=== PATIENT | female | born 1955 ===

== ENCOUNTER 2025-01-04 10:15 | Outpatient (REF) | payer OTHER, SELFPAY ==
--- NOTE | ~2025-01-04 | XR_ITS ---
CLINICAL HISTORY: M25.561 - Pain in right knee AP standing view of bilateral knees, two views of right knee and two views of the left knee Comparison: None Findings: No fractures or dislocations. No significant arthritic change or erosions. No joint effusion. No radiopaque foreign body. IMPRESSION: 1. No acute findings. This document has been electronically signed by: Felipe Warren MD on 01/04/2025 15:56:00
--- NOTE | ~2025-01-04 | XR_ITS ---
CLINICAL HISTORY: M51.369 - Other intervertebral disc degeneration, lumbar region without ... 5 views lumbar spine Comparison: None Findings: Normal vertebral body alignment. No acute fractures or dislocation. Multilevel disc space narrowing and endplate osteophyte formation, as well as facet hypertrophy. IMPRESSION: No acute findings. This document has been electronically signed by: Felipe Warren MD on 01/04/2025 15:45:13
--- OUTSIDE RECORDS SUMMARY | 2025-01-04 12:47 | XMS_ITS | Clinical Summary ---
Author Organization [facility] Address [address] [place] [address] Care Team Providers Care [employer]al [employer] Supervisor Name Role Phone Minerva Omalley PA-C Primary [...] care facility [facility] 90 Tablet 6 04/10/20 24 Active albuterol [...] September 20, 2017 15:40 EST Encounter info: [id number], BAKARI, OutPatient One Time, 09/20/2017 - * [...] There is no acute osseous abnormality. WSN: [id number] Signature Line Dictated By: Marcy Stokes MD [...] Description 12/16/2024 7:40 AM EDT Telemedicine Visit [address] [address] Minerva Omalley PA-C Lumbar disc disease, x-ray 09/20/2017 (Primary Dx); Primary osteoarthritis involving multiple joints; Fibromyalgia 10/27/2024 1:00 PM EST Office Visit [address] [place] [address] Minerva Omalley PA-C Routine general medical examination [...] Screening 12/03/2032 Hepatitis C Screening Completed 12/04/2018 [id number] Discontinued 05/23/2022, 12/0 03/2021, 12/31/2020, Additional history [...] TO FT4 0.64 0.40 - 4.50 mIU/L [facility] Blood Blood / Unknown 10/27/2024 1 :18 PM EST 10/27/2024 1:19 PM EST Minerva Omalley PA-C LAB - BLOOD DRAW Edited Resu lt - Final [facility] [address] [address], [facility] [address] [address] * (ABNORMAL) LYME DISEASE, IGG/IGM AB, WESTERN BLOT (10/27/2024 1:18 PM EST) LYME DISEASE AB (IGG) WB NEGATIVE NEGATIVE [facility] 18 KD (IGG) BAND REACTIVE(A) [facility] 23 KD (IGG) BAND NON-REACTIVE [facility] 28 KD (IGG) BAND NON-REACTIVE [facility] 30 KD (IGG) BAND NON-REACTIVE [facility] 39 KD (IGG) BAND NON-REACTIVE [facility] 41 KD (IGG) BAND NON-REACTIVE [facility] 45 KD (IGG) BAND NON-REACTIVE [facility] 58 KD (IGG) BAND NON-REACTIVE [facility] 66 KD (IGG) BAND REACTIVE(A) [facility] 93 KD (IGG) BAND NON-REACTIVE [facility] LYME DISEASE AB (IGM) WB NEGATIVE NEGATIVE [facility] 23 KD (IGM) BAND REACTIVE(A) [facility] 39 KD (IGM) BAND NON-REACTIVE [facility] 41 KD (IGM) BAND NON-REACTIVE [facility] COMMENT [facility] Blood Blood / Unknown 10/27/2024 1 :18 PM EST 10/27/2024 1:19 PM EST Narrative [facility] - 10/28/2024 9:30 PM EST Lyme immunoblot [...] LAB - BLOOD DRAW Final Resul t [facility] [address] [address], [facility] [address] [address] * (ABNORMAL) BLOOD COUNT COMPLETE AUTO&AUTO DIFRNTL WBC (10/27/2024 1:18 PM EST) WHITE BLOOD CELL COUNT 5.0 3.8 - 10.8 Thousand/ uL [facility] RED BLOOD CELL COUNT 4.21 3.80 - 5.10 Million/u L [facility] HEMOGLOBIN 12.5 11.7 - 15.5 g/dL [facility] HEMATOCRIT 38.9 35.0 - 45.0 % [facility] MCV 92.4 80.0 - 100.0 fL [facility] MCH 29.7 27.0 - 33.0 pg [facility] MCHC 32.1 32.0 - 36.0 g/dL [facility] Comment: For adults, a slight decrease in the calculated MCHC value (in the range of 30 to 32 g/dL) is most likely not clinically significant; however, it should be interpreted with caution in correlation with other red cell parameters and the patient's clinical condition. RDW 13.0 11.0 - 15.0 % [facility] PLATELET COUNT 164 140 - 400 Thousand/ uL [facility] MPV 12.8(H) 7.5 - 12.5 fL [facility] ABSOLUTE NEUTROPHILS 2,795 1,500 - 7,800 cells/uL [facility] ABSOLUTE LYMPHOCYTES 1,765 850 - 3,900 cells/uL [facility] ABSOLUTE MONOCYTES 310 200 - 950 cells/uL [facility] ABSOLUTE EOSINOPHILS 120 15 - 500 cells/uL [facility] ABSOLUTE BASOPHILS 10 0 - 200 cells/uL [facility] NEUTROPHILS PCT 55.9 % QUES T [employer] [facility] LYMPHOCYTES 35.3 % [facility] [employer] [facility] MONOCYTES 6.2 % [facility] [employer] [facility] EOSINOPHILS 2.4 % [facility] [employer] BASOPHILS 0.2 % [employer] DIAG [employer] [facility] Blood Blood / Unknown 10/27/2024 1 :18 PM EST 10/27/2024 1:19 PM EST us Minerva Omalley PA-C LAB - BLOOD DRAW Edited Resu lt - Final [employer] [facility] [address] [address], [employer] [address] [address] * (ABNORMAL) LIPID PANEL (10/27/2024 1:18 PM EST) CHOLESTEROL, TOTAL 243(H) <200 mg/dL [employer] [facility] HDL CHOLESTEROL 74 > OR = 50 mg/dL [facility] TRIGLYCERIDES 103 <150 mg/dL [facility] LDL-CHOLESTEROL 147(H) 99 mg/dL (calc) [facility] Comment: Reference range: <100 Desirable range <100 mg/dL for primary prevention; ?? <70 mg/dL for patients with CHD or diabetic patients with > or = 2 CHD risk factors. LDL-C is now calculated using the Noreen calculation, which is a validated novel method providing better accuracy than the Friedewald equation in the estimation of LDL-C. Gelacio RAYA et al. ASHWIN. 2013;310(19): 7574-2861 (http://education.Pretty P[employer] Room/faq/MWL701) CHOL/HDLC RATIO 3.3 <5.0 (calc) [facility] NON-HDL CHOLESTEROL 169(H) <130 mg/dL (calc) [facility] Comment: For patients with diabetes plus 1 major ASCVD risk factor, treating to a non-HDL-C goal of <100 mg/dL (LDL-C of <70 mg/dL) is considered a therapeutic option. Blood Blood / Unknown 10/27/2024 1 :18 PM EST 10/27/2024 1:19 PM EST us Minerva Omalley PA-C LAB - BLOOD DRAW Final Resul t [facility] [address] [place] [address], [facility] [address] [place] [phone] * COMPREHENSIVE METABOLIC PANEL (10/27/2024 1:18 PM EST) GLUCOSE 85 65 - 99 mg/dL [facility] Comment: ?Fasting reference interval UREA NITROGEN (BUN) 17 7 - 25 mg/dL [facility] CREATININE (blood) 0.71 0.60 - 1.00 mg/dL [facility] EGFR 91 > OR = 60 mL/min/1. 73m2 [facility] BUN/CREATININE RATIO SEE NOTE: [facility] Comment: ?? Not Reported: BUN and Creatinine are within ?? reference range. ? SODIUM 143 135 - 146 mmol/L [facility] POTASSIUM 3.9 3.5 - 5.3 mmol/L [facility] CHLORIDE 105 98 - 110 mmol/L [facility] CARBON DIOXIDE 31 20 - 32 mmol/L [facility] CALCIUM 9.0 8.6 - 10.4 mg/dL [facility] PROTEIN, TOTAL 6.7 6.1 - 8.1 g/dL [facility] ALBUMIN 4.2 3.6 - 5.1 g/dL [facility] GLOBULIN 2.5 1.9 - 3.7 g/dL (calc) [facility] ALBUMIN/GLOBULI N RATIO 1.7 1.0 - 2.5 (calc) [facility] BILIRUBIN, TOTAL 0.3 0.2 - 1.2 mg/dL [facility] ALKALINE PHOSPHATASE 86 37 - 153 U/L [facility] AST 24 10 - 35 U/L [facility] ALT 20 6 - 29 U/L [facility] Blood Blood / Unknown 10/27/2024 1 :18 PM EST 10/27/2024 1:19 PM EST Minerva Omalley PA-C LAB - BLOOD DRAW Edited Resu lt - Final Performing Organization Address City[facility]/ZIP Co de Phone Number [facility] [address] [address], [facility] [address] [address] * MAMMO DIGITAL SCREEN [place] W CAD 3D (03/12/2024 3:00 AM EDT) 03/12/2024 3:00 AM EDT Minerva Omalley PA-C IMG MAMMO Edited Resul t - Final Performing Organization Address City/[facility]/ZIP Co de Phone Number [facility] Corporate Office [address], [address] [place] [address], [place] [phone] * HISTORIC COLONOSCOPY (12/03/2022 3:00 AM EST) 12/03/2022 3:00 AM EST Minerva Lukin PA-C PROCEDURES Final Result * HEPATITIS C ANTIBODY (12/04/2018 3:35 PM EST) HEPATITIS C VIRUS SCREEN NEGATIVE NEGATIVE [facility] Blood specimen (specimen) Blood / Unknown 12/04/2018 3:35 PM EST 12/04/2018 3:42 PM EST Narrative [facility] - 12/04/2018 7:56 PM EST [employer], a member of [address] [address] [employer] - Priya Kilpatrick MD PT ID [id number] ORD# [id number] us Minerva Omalley PA-C LAB - BLOOD DRAW Final Resul t [address] [address], from Last 3 Months or Most Recently Relevant to Health Maintenance Insurance [facility] Member Subscriber Plan / Payer (Ef fective 2018-Present) Name:Jay Viktoriya Relation to Subscriber:Self Name:Viktoriya Thompson Payer ID:[id number] Group ID:Not on file Type:Indemnity Address: [place] [address] [address] [address] Care Teams 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
== END 2025-01-04 10:16 | disposition home or self-care (01) ==
LOC: HO.XRAY 10:15
PROVIDERS: PCP Physician Assistant; Referring Provider Physician Assistant; Visit Provider Nurse Practitioner Family
DX: M51.369 Other intervertebral disc degeneration, lumbar region without mention of lumbar back pain or lower extremity pain (principal); M54.50 Low back pain, unspecified; G89.29 Other chronic pain; M25.561 Pain in right knee; M25.562 Pain in left knee; M79.7 Fibromyalgia; M15.0 Primary generalized (osteo)arthritis
CPT/HCPCS: 72110; 73562; 99202

== ENCOUNTER 2025-01-04 10:15 | Outpatient (AMB) | payer OTHER, SELFPAY ==
--- NOTE | 2025-01-04 10:18 | A.OFFVIS_ITS ---
Vital Signs 01/04/25 10:26 Height 4 ft 10 in Weight 130 lb BMI 27.2 BP 158/76 H Blood Pressure Location Lt brachial Position Sitting Pulse 74 Pulse Source Pulse Oximeter Pulse Oximetry (%) 99 Oxygen Delivery Method Room Air Intake Visit Reasons: Lumbar disc diease Intake Note: Pain today 05/16 Community Service Coordinator Required: Yes Community Service Coordinator Language: Court Crier Services: Community Service Coordinator Offered & Declined Community Service Coordinator Name: Son Jesus Muhammad Accompanied by: Son Allergies No Known Allergies Allergy (Verified 01/04/25 10:24) HPI HPI Lumbar disc diease: Details: The patient is a 69-year-old Khmer speaking female presenting with back and bilateral knee pain. She reports experiencing long-standing back and knee pain that significantly impairs her mobility, ability to perform daily activities, and sleep quality. The pain has been a consistent problem for an extended period and is described as severe enough to disrupt nightly rest. Additionally, the patient has a documented diagnosis of fibromyalgia causing widespread pain and arthritis affecting multiple joints. Previously prescribed pain medications have been discontinued by her primary care provider and rheumatology per patient, with Gabapentin at nighttime remaining as part of her pain management regimen. The patient also manages osteoporotic and hypertensive conditions, necessitating a cautious approach to treatment plans, particularly concerning potential steroid use. Physical therapy or other non-pharmacological interventions have yet to be attempted. - Onset: Long-standing - Quality: Burning, tiring, tight, heavy, aching, sore, dull, exhausting, sharp - Location: Primarily the back, with knees, shoulders and neck complaints also mentioned - Radiation: No clear indications of systemic radiation, localized specific joint and fibromyalgia points - Exacerbating factors: Physical activity, walking, daily tasks, sleep, changing positions, cold weather - Relieving factors: Not explicitly discussed, partial relief with previous intake of Celebrex and lidocaine patches, heat - Functional impact: Impairs walking, sleeping, and daily activities; requires use of a cane for ambulation - Affect: The patient's mood and psychological well-being may be compromised due to the chronic pain affecting her daily living and sleep. - Analgesia: Current pain medications include Gabapentin taken at night. Lidocaine patches and Celebrex were previously partially effective. Awaiting complete PMH/PSH from PCP office for consideration of non-opioid medications. - Adverse Effects: None reported in connection with current pain medications. - Activities of Daily Living: Pain impedes walking, completing household tasks, and interrupts sleep. - Aberrant Drug Related Behaviors: None reported or observed during this visit. Oswestry Low Back Pain Disability Score=34 [facility] Medical History (Updated 01/04/25 @ 11:05 by MARIANA Em) Dizziness Chronic fatigue Chronic low back pain HTN (hypertension) Osteoporosis Fibromyalgia Primary osteoarthritis involving multiple joints Lumbar degenerative disc disease Social History Alcohol intake: never Patient Tobacco Use Status: Never used Tobacco Review of Systems Const Details: - Musculoskeletal: Reports back pain, knee pain, shoulder and neck discomfort - Neurological: Reports nocturnal awakenings due to pain All systems reviewed & are unremarkable except as noted in HPI and below Physical Exam General: Appears afebrile. Mild discomfort due to pain. Alert and oriented. Mood and affect appropriate. Follows and participates in conversation appropriately. Respiratory effort is unlabored. No cough. No nasal discharge. Able to transition from sit to stand unassisted. Ambulates with bilaterally normal heel strike and toe off. General: Yes no CVA tenderness Back/Spine/Pelvis Other: Lumbar extension reproduces moderate-severe pain. Flexion is intact but limited and reproduces mild pain. Positivie facet loading bilaterally. Multiple widespread TTPs 16/16 bilaterally, including upper and lower extremities. Back: no CVA tenderness Cervical Spine: cervical ROM normal, cervical muscular tenderness, pain with cervical ROM, No Cervical spine scars present and No Cervical spine tenderness Thoracic/Lumbar Spine: thoracic and lumbar spine normal to inspection, No Thoracic/lumbar spine scar(s), Lasegue's sign negative, straight leg raise negative bilaterally, pain with thoraco-lumbar ROM, paraspinal muscle tenderness, thoraco-lumbar ROM limited, No thoracic spinal tenderness and lumbar spinal tenderness (L3-S1) Pelvis: no buttock tenderness Sacroiliac joints: bilaterally tender to palpation Extrem General: Yes capillary refill normal, Yes no clubbing, cyanosis or edema and Yes no calf tenderness Right lower extremity: knee (limited ROM due to pain) Details: normal to inspection, tenderness Location: of the medial joint line and of the lateral joint line and crepitus; no swelling, no ecchymosis and no unusual warmth Left lower extremity: knee (limited ROM due to pain) Details: normal to inspection, tenderness Location: of the medial joint line and of the lateral joint line and crepitus; no swelling, no ecchymosis and no unusual warmth Results Reviewed Results Reviewed: No imaging or labs reports are available for review during visit; planned for back and knee x-rays Assessment & Plan Assessment & Plan (1) Lumbar degenerative disc disease: Code(s): M51.369 - Other intervertebral disc degeneration, lumbar region without mention of lumbar back pain or lower extremity pain Category: Medical (2) Primary osteoarthritis involving multiple joints: Code(s): M15.0 - Primary generalized (osteo)arthritis Category: Medical (3) Fibromyalgia: Code(s): M79.7 - Fibromyalgia Category: Medical (4) Bilateral knee pain: Code(s): M25.561 - Pain in right knee; M25.562 - Pain in left knee Category: Medical (5) Chronic low back pain: Code(s): M54.50 - Low back pain, unspecified; G89.29 - Other chronic pain Category: Medical Plan We will pursue imaging of the patient's back and knees to assess for degree of degenerative changes, any subluxation, listhesis, compression fractures or pars defects. Diagnostic nerve blocks were discussed zoraida confirm the source of her pain, leading to potential radiofrequency ablation or neuromodulation with Sprint PNS trial for prolonged relief. Massage therapy is recommended to address fibromyalgia and arthritic pain. A cautious approach, avoiding steroids, is advised due to osteoporosis. Comprehensive medical records from PCP will help finalize her pain management plan. All questions and concerns have been answered and patient agreed with the plan. Follow up for xray/records review and sooner as needed. Patient was informed and verbally consented to the use of an ambient scribe for clinic note documentation during this visit. Orders: Orders XR knee RT 3V Today M25.561 - Pain in right knee, M25.562 - Pain in left knee XR lumbar spine 4V min Today G89.29 - Other chronic pain, M51.369 - Other intervertebral disc degeneration, lumbar region without mention of lumbar back pain or lower extremity pain, M54.50 - Low back pain, unspecified Referrals Massage Therapy Referral G89.29 - Other chronic pain, M25.561 - Pain in right knee, M25.562 - Pain in left knee, M51.369 - Other intervertebral disc degeneration, lumbar region without mention of lumbar back pain or lower extremity pain, M54.50 - Low back pain, unspecified, M79.7 - Fibromyalgia Medications: New lidocaine 5% Apply to affected areas up to 12 hours per day 2 patches topical DAILY 30 days 60 ea 3RF pain G89.29 - Other chronic pain, M25.561 - Pain in right knee, M25.562 - Pain in left knee, M54.50 - Low back pain, unspecified Patient Instructions: During the visit, we discussed the probable presence of axial back and knee pain exacerbated by arthritis and widespread pain associated with fibromyalgia. Diagnostic imaging and follow-up tests are essential next steps to guide treatment. We explored radiofrequency ablation and Sprint PNS trial benefits, which provide up to a year of pain relief after successful diagnostic nerve blocks. Risks and considerations, including steroid avoidance due to osteoporosis, were reviewed. Consent discussions enveloped receiving massage therapy for fibromyalgia, with referrals to [place] provided. I advised obtaining complete medication and past medical/surgical history for optimal pharmacotherapy and interventional treatment decisions, and forewarned about pre-procedure guidelines for diagnostic interventions, including the need for the cessation of aspirin if nerve blocks are pursued. - Schedule and complete x-rays for your back and knees as discussed. - Attend massage therapy sessions in [place] as referred to help alleviate fibromyalgia and arthritic pain. - Expect a follow-up call regarding the results and next steps. - Stop aspirin seven days before any potential injection procedures, will obtain permission from prescribing physician. - Ensure that your complete medical, surgical and medication history is sent to our office for review. - Return for follow-up after xrays are complete and PCP records received to discuss treatment options. Coding Level of Care Code New Pt Level 4 (86280) Diagnoses Lumbar degenerative disc disease M51.369 Primary osteoarthritis involving multiple joints M15.0 Fibromyalgia M79.7 Bilateral knee pain M25.561; M25.562 Chronic low back pain M54.50; G89.29
[2025-01-04 10:26] VITALS: BP 158/76; PULSE 74; O2SAT 99; BMI 27.2
--- OUTSIDE RECORDS SUMMARY | 2025-01-04 11:25 | XMS_ITS | Clinical Summary ---
Author Organization [facility] Address [address] [place] [address] Care Team Providers Care Loin Puller Name Role Phone Minerva Omalley PA-C Primary Care Provider Source Comments PLEASE NOTE, if this patient is a minor, it may be UNLAWFUL to discuss sensitive information that is contained in these records (such as FAMILY PLANNING, MENTAL HEALTH or SUBSTANCE ABUSE) with the minor patient's parent or other person without the patient's specific authorization.[facility] Allergies No known active allergies Medications acetaminophen (TYLENOL 8 HOUR) 650 mg CR tabletIndications :Tendinitis of shoulder, unspecified laterality,Thorac ic arthritis Take 1 Tablet by mouth 2 (two) times daily 180 Tablet 1 01/16/20 22 Active alendronate (FOSAMAX) 70 mg tabletIndications :Osteoarthritis, unspecified osteoarthritis type, unspecified site TAKE 1 TABLET 1 TIME A WEEK ON EMPTY STOMACH IN THE MORNING WITH WATER SIT UPRIGHT FOR 30 MIN 01/23/20 22 Active latanoprost (XALATAN) 0.005 % ophthalmic solutionIndicatio ns:Osteoarthritis , unspecified osteoarthritis type, unspecified site INSTILL 1 DROP EN LOS DOS OJOS AL ACOSTARSE 01/08/20 22 Active diclofenac epolamine (FLECTOR) 1.3 % patchIndications: Myalgia Place 1 Patch onto the skin 2 (two) times daily 60 Patch 1 02/17/20 22 Active cyclobenzaprine (FLEXERIL) 10 mg tabletIndications :Rib pain on left side,Pain in left lumbar region of back Take 1 Tablet by mouth 2 (two) times daily as needed for muscle spasms 60 Tablet 09/04/20 23 Active diclofenac sodium (VOLTAREN) 1 % gelIndications:Le ft leg pain,Plantar fasciitis of right foot Apply topically 2 (two) times daily 100 g 3 10/29/19 24 Active cholecalciferol (VITAMIN D-3) 50 mcg (2,000 unit) tabletIndications :Routine general medical examination at a health care facility TOME DEBI TABLETA TODOS LOS MOODY 90 Tablet 6 04/10/20 24 Active albuterol HFA 90 mcg/actuation inhalerIndication s: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 Inhale 2 Puffs into the lungs every 4 to 6 (four to six) hours as needed for shortness of breath 18 g 3 07/24/20 24 Active zolpidem (AMBIEN) 5 mg tabletIndications :Primary insomnia TAKE 1 TABLET BY MOUTH NIGHTLY AT BEDTIME NEEDED FOR SLEEP 30 Tablet 2 09/28/20 24 Active escitalopram oxalate (LEXAPRO) 5 mg tabletIndications :Anxiety and depression TOME 1 TABLETA POR VIA ORAL TODOS [place] AL ACOSTARSE 90 Tablet 1 10/16/19 25 Active gabapentin (NEURONTIN) 300 mg capsuleIndication s:Primary osteoarthritis involving multiple joints Take 1 Capsule by mouth nightly at bedtime 90 Capsule 3 10/27/19 25 Active fluticasone propion-salmetero L (ADVAIR) 500-50 mcg/dose diskus inhalerIndication s:Mild persistent asthma without complication Inhale 1 Puff into the lungs 2 (two) times daily 60 Each 3 10/27/19 25 Active amLODIPine (NORVASC) 2.5 mg tabletIndications :Essential hypertension, benign TOME 1 TABLETA POR VIA ORAL TODOS [place] 90 Tablet 1 11/06/19 25 Active aspirin [address] tabletIndications :Atypical chest pain TOME 1 TABLETA POR VIA ORAL TODOS [place] 90 Tablet 2 11/09/19 25 Active celecoxib (CELEBREX) 200 mg capsuleIndication s:Osteoarthritis, unspecified osteoarthritis type, unspecified site TOME 1 CAPSULA POR VIA ORAL DOS VECES AL SHANKAR 180 Capsule 1 01/01/20 25 Active celecoxib (CELEBREX) 200 mg capsuleIndication s:Osteoarthritis, unspecified osteoarthritis type, unspecified site TOME 1 CAPSULA POR VIA ORAL DOS VECES AL SHANKAR 180 Capsule 1 12/06/26 24 025 Discontinued Active Problems Problem Noted Date Diagnosed Date Primary osteoarthritis involving multiple joints 07/24/2024 Anxiety and depression 05/21/2022 Fibromyalgia 12/29/2021 Essential hypertension, benign 01/08/2019 Lumbar disc disease, x-ray 09/20/2017 12/04/2018 Overview (12/04/2018): Result type: Lumbar Spine 2 or 3 Views Result date: September 20, 2017 15:12 EST Result status: Auth (Verified) Result title: XR Lumbar Spine 2 or 3 Views Performed by: Marcy Stokes MD on September 20, 2017 15:40 EST Verified by: Marcy Stokes MD on September 20, 2017 15:40 EST Encounter info: [id number], BAKARI, OutPatient One Time, 09/20/2017 - * Final Report * Reason For Exam Pain RESULT: Lumbar Spine 2 or 3 Views Examination: Lumbar spine performed on 09/20/2017. History: Pain Findings: Frontal, lateral, and cone-down lateral views of the lumbar spine are compared to a prior study dated 08/18/13. There are five lumbar type nonrib-bearing vertebral bodies. Vertebral body heights are preserved at all visualized levels. A minimal rightward curvature within the lumbar spine is noted. There has been progression of disc space narrowing with vacuum disc phenomenon and osteophyte formation at the L3-L4, L4-L5, and L5-S1 levels. No malalignment is seen. There are no fractures. Phleboliths within the pelvis are demonstrated. Impression: Progression of degenerative disc disease. There is no acute osseous abnormality. WSN: [id number] Signature Line Dictated By: Marcy Stokes MD Dictated Date/Time: 09/20/17 3:40 pm Reviewed By: Marcy Stokes MD Signed By: Marcy Stokes MD Signed Date/Time: 09/20/17 3:40 pm Transcribed By: RADHA Transcribed Date/Time: 09/20/17 3:40 pm Lumbar Spine 2 or 3 Views This document has an image Primary insomnia 12/04/2018 Overflow incontinence 12/04/2018 Encounters Date Type Department Care Team Description 12/16/2024 7:40 AM EDT Telemedicine Visit [address] [address] Minerva Omalley PA-C Lumbar disc disease, x-ray 09/20/2017 (Primary Dx); Primary osteoarthritis involving multiple joints; Fibromyalgia 10/27/2024 1:00 PM EST Office Visit [id number] [place] [address] Minerva Omalley PA-C Routine general medical examination at a health care facility (Primary Dx); Essential hypertension, benign; Primary osteoarthritis involving multiple joints; Malaise and fatigue; Mild persistent asthma without complication from Last 3 Months Immunizations Immunization Administration Dates Next Due Flu, High Dose, 65y+, Fluzon e High Dose 07/11/2022,06/30/2021 Moderna COVID-19 Vaccine, re d cap blue label, 12+ Primary Series 05/23/2022,09/11/2021,12/31/2020,2020 PNEUMOCOCCAL CONJUGATE PCV 2 0 (Prevnar) 07/11/2022 Social History Tobacco Use Types Packs/Day Years Used Date Smoking Tobacco: Never Smokeless Tobacco: Never Tobacco Cessation:Counseling Given: Not Answered Alcohol Use Standard Drinks/Week Comments No 0 (1 standard drink = 0.6 oz pur e alcohol) Social Connections Answer Date Recorded Connectedness 1 10/27/2024 Financial Resource Strain Answer Date R ecorded Financial Resource Strain 1 2024 Stress Answer Date Recorded Stress 1 10/27/2024 Physical Activity Answer Date Recorded Physical Activity 0 06/01/2019 Food Insecurity Answer Date Recorded Food 1 10/27/2024 Transportation Needs Answer Date Record ed Transportation 1 10/27/2024 Housing Stability Answer Date Recorded Housing 1 10/27/2024 Safety and Environment Answer Date Neto rded Safety 0 03/05/2023 Utilities Answer Date Recorded Utilities 1 10/27/2024 Employment Answer Date Recorded Stress 0 12/25/2021 Comments No Sex and Gender Information Value Date Recorded Sex Assigned at Female 12/05/2018 7:29 AM PST Legal Sex Female 8:03 AM PST Gender Identity Female 12/05/2018 7:29 AM PST Sexual Orientation Straight 12/05/2018 7: 29 AM PST Last Filed Vital Signs Vital Sign Reading Time Taken Comments Blood Pressure 130/68 10/27/2024 1:04 PM EST Pulse 79 10/27/2024 1:04 PM EST Temperature 37.1 ??C (98.7 ??F) 10/27/2024 1:04 PM ES T Respiratory Rate 16 10/27/2024 1:04 PM EST Oxygen Saturation 97% 10/27/2024 1:04 PM EST Inhaled Oxygen Concentration - - Weight 59 kg (130 lb) 10/27/2024 1:04 PM EST Height 149.9 cm (4' 11 ) 10/27/2024 1:04 PM EST Body Mass Index 26.26 10/27/2024 1:04 PM EST Plan of Treatment Health Maintenance Due Date Last Done Comments CT Colonography 1998 FIT/gFOBT 1998 Fecal DNA 1998 Flexible Sigmoidoscopy 1998 Depression Monitoring 01/25/2025 10/27/2024 , 03/05/2023, 11/14/2022, Additional history exists Breast Cancer Screening (Mammogram) 03/12/2025 03/12/2024, 03/11/2023, 07/18/2021, Additional history exists Imm-DTaP/Tdap/Td (2 - Td or Tdap) 03/18/2025 07/07/2010 Postponed from 07/07/2020 (Patient postponement) Medicare Annual Wellness Visit 10/27/2025 10/27/2024, 03/05/2023, 12/29/2021, Additional history exists Falls Prevention 12/16/2025 12/16/2024 (Man aged by Outside Provider) Tobacco Screening 12/16/2025 12/16/2024 Diabetes Screening 10/27/2027 10/27/2024, 0 06/25/2023, 11/14/2022, Additional history exists Lipid Screening 10/27/2027 10/27/2024, 06/07, 11/14/2022, Additional history exists Colonoscopy 12/03/2032 12/03/2022, 11/08, 08/13/2011 Colorectal Cancer Screening 12/03/2032 Hepatitis C Screening Completed 12/04/2018 [id number] Discontinued 05/23/2022, 12/0 03/2021, 12/31/2020, Additional history exists Imm-Pneumococcal 65+ Completed 07/11/2022 Imm-Influenza Completed 08/18/2024, 02/2022, 06/30/2021, Additional history exists Alcohol and Drug Screen Completed 10/27/19, 03/05/2023, 11/14/2022, Additional history exists Imm-Zoster, Recombinant Discontinued 12/11/2024 Bone Density Screening Discontinued Procedures Procedure Name Priority Date/Time Associated Diagnosis Comments REFERRAL TO RHEUMATOLOGY Routine 11/16/2024 3:00 AM EST Primary osteoarthritis involving multiple joints OTHER ORDERS SCANNED DOCUMENT 11/03/2024 3:00 AM EST LYME DISEASE, IGG/IGM AB, WESTERN BLOT Routine 10/27/2024 1:18 PM EST Routine general medical examination at a health care facility Essential hypertension, benign Primary osteoarthritis involving multiple joints Malaise and fatigue BLOOD COUNT COMPLETE AUTO&AUTO DIFRNTL WBC Routine 10/27/2024 1:18 PM EST Routine general medical examination at a health care facility Essential hypertension, benign Primary osteoarthritis involving multiple joints Malaise and fatigue COMPREHENSIVE METABOLIC PANEL Routine 10/27/2024 1:18 PM EST Routine general medical examination at a health care facility Essential hypertension, benign Primary osteoarthritis involving multiple joints Malaise and fatigue LIPID PANEL Routine 10/27/2024 1:18 PM EST Routine general medical examination at a health care facility Essential hypertension, benign Primary osteoarthritis involving multiple joints Malaise and fatigue TSH W/RFLX FREE T4 Routine 10/27/2024 1: 18 PM EST Routine general medical examination at a health care facility Essential hypertension, benign Primary osteoarthritis involving multiple joints Malaise and fatigue OTHER ORDERS SCANNED DOCUMENT 10/27/2024 3:00 AM EST MAMMO DIGITAL SCREEN [place] W CAD 3D Routine 03/12/2024 3:00 AM EDT Screening mammogram for breast cancer HISTORIC COLONOSCOPY 12/03/2022 3:00 AM EST HEPATITIS C ANTIBODY Routine 12/04/2018 3:35 PM EST Routine general medical examination at a health care facility from Last 3 Months or Most Recently Relevant to Health Maintenance Results * REFERRAL TO RHEUMATOLOGY (11/16/2024 3:00 AM EST) 11/16/2024 3:00 AM EST Minerva Omalley PA-C REFERRAL Final Result * OTHER ORDERS SCANNED DOCUMENT (11/03/2024 3:00 AM EST) Only the most recent of2 resultswithin the time period is included. 11/03/2024 3:00 AM EST Minerva Omalley PA-C SCAN OTHER ORDERS Final Resu lt * TSH W/RFLX FREE T4 (10/27/2024 1:18 PM EST) TSH W/REFLEX TO FT4 0.64 0.40 - 4.50 mIU/L [facility] Blood Blood / Unknown 10/27/2024 1 :18 PM EST 10/27/2024 1:19 PM EST Minerva Omalley PA-C LAB - BLOOD DRAW Edited Resu lt - Final [facility] [address] [address], [facility] [address] [address] * (ABNORMAL) LYME DISEASE, IGG/IGM AB, WESTERN BLOT (10/27/2024 1:18 PM EST) LYME DISEASE AB (IGG) WB NEGATIVE NEGATIVE [facility] 18 KD (IGG) BAND REACTIVE(A) [facility] 23 KD (IGG) BAND NON-REACTIVE [facility] 28 KD (IGG) BAND NON-REACTIVE [facility] 30 KD (IGG) BAND NON-REACTIVE [facility] 39 KD (IGG) BAND NON-REACTIVE [facility] 41 KD (IGG) BAND NON-REACTIVE [facility] 45 KD (IGG) BAND NON-REACTIVE [facility] 58 KD (IGG) BAND NON-REACTIVE [facility] 66 KD (IGG) BAND REACTIVE(A) [facility] 93 KD (IGG) BAND NON-REACTIVE [facility] LYME DISEASE AB (IGM) WB NEGATIVE NEGATIVE [facility] 23 KD (IGM) BAND REACTIVE(A) [facility] 39 KD (IGM) BAND NON-REACTIVE [facility] 41 KD (IGM) BAND NON-REACTIVE [facility] COMMENT [facility] Blood Blood / Unknown 10/27/2024 1 :18 PM EST 10/27/2024 1:19 PM EST Narrative [facility] - 10/28/2024 9:30 PM EST Lyme immunoblot testing should only be performed on samples from patients who have had a Positive or Equivocal result in a screening assay. ?? As per CDC criteria, a Lyme disease IgG Immunoblot must show reactivity to at least 5 of 10 specific borrelial proteins to be considered positive; similarly, a positive Lyme disease IgM immunoblot requires reactivity to 2 of 3 specific borrelial proteins. Although considered negative, IgG reactivity to fewer specific borrelial proteins or IgM reactivity to only 1 protein may indicate recent B. burgdorferi infection and warrant testing of a later sample. A positive IgM but negative IgG result obtained more than a month after onset of symptoms likely represents a false- positive IgM result rather than acute Lyme disease. In rare instances, Lyme disease immunoblot reactivity may represent antibodies induced by exposure to other spirochetes. Minerva Omalley PA-C LAB - BLOOD DRAW Final Resul t [facility] [address] [address], [facility] [address] [address] * (ABNORMAL) BLOOD COUNT COMPLETE AUTO&AUTO DIFRNTL WBC (10/27/2024 1:18 PM EST) WHITE BLOOD CELL COUNT 5.0 3.8 - 10.8 Thousand/ uL [facility] RED BLOOD CELL COUNT 4.21 3.80 - 5.10 Million/u L [facility] HEMOGLOBIN 12.5 11.7 - 15.5 g/dL [facility] HEMATOCRIT 38.9 35.0 - 45.0 % [facility] MCV 92.4 80.0 - 100.0 fL [facility] MCH 29.7 27.0 - 33.0 pg [facility] MCHC 32.1 32.0 - 36.0 g/dL [facility] Comment: For adults, a slight decrease in the calculated MCHC value (in the range of 30 to 32 g/dL) is most likely not clinically significant; however, it should be interpreted with caution in correlation with other red cell parameters and the patient's clinical condition. RDW 13.0 11.0 - 15.0 % [facility] PLATELET COUNT 164 140 - 400 Thousand/ uL [facility] MPV 12.8(H) 7.5 - 12.5 fL [facility] ABSOLUTE NEUTROPHILS 2,795 1,500 - 7,800 cells/uL [facility] ABSOLUTE LYMPHOCYTES 1,765 850 - 3,900 cells/uL [facility] ABSOLUTE MONOCYTES 310 200 - 950 cells/uL [facility] ABSOLUTE EOSINOPHILS 120 15 - 500 cells/uL [facility] ABSOLUTE BASOPHILS 10 0 - 200 cells/uL [facility] NEUTROPHILS PCT 55.9 % [facility] [employer] [facility] LYMPHOCYTES 35.3 % [facility] [employer] [facility] MONOCYTES 6.2 % [facility] [employer] [facility] EOSINOPHILS 2.4 % [facility] BASOPHILS 0.2 % [employer] DIAG [employer] [facility] Blood Blood / Unknown 10/27/2024 1 :18 PM EST 10/27/2024 1:19 PM EST us Minerva Omalley PA-C LAB - BLOOD DRAW Edited Resu lt - Final [facility] [address] [address], [employer] [address] [address] * (ABNORMAL) LIPID PANEL (10/27/2024 1:18 PM EST) CHOLESTEROL, TOTAL 243(H) <200 mg/dL [employer] [facility] HDL CHOLESTEROL 74 > OR = 50 mg/dL [facility] TRIGLYCERIDES 103 <150 mg/dL [facility] LDL-CHOLESTEROL 147(H) 99 mg/dL (calc) [facility] Comment: Reference range: <100 Desirable range <100 mg/dL for primary prevention; ?? <70 mg/dL for patients with CHD or diabetic patients with > or = 2 CHD risk factors. LDL-C is now calculated using the Noreen calculation, which is a validated novel method providing better accuracy than the Friedewald equation in the estimation of LDL-C. Gelacio RAYA et al. ASHWIN. 2013;310(19): 1719-7589 (http://education.[employer]/faq/JDR436) CHOL/HDLC RATIO 3.3 <5.0 (calc) [facility] NON-HDL CHOLESTEROL 169(H) <130 mg/dL (calc) [facility] Comment: For patients with diabetes plus 1 major ASCVD risk factor, treating to a non-HDL-C goal of <100 mg/dL (LDL-C of <70 mg/dL) is considered a therapeutic option. Blood Blood / Unknown 10/27/2024 1 :18 PM EST 10/27/2024 1:19 PM EST us Minerva Omalley PA-C LAB - BLOOD DRAW Final Resul t [employer] [address] [place] [id number], [facility] [address] [place] [phone] * COMPREHENSIVE METABOLIC PANEL (10/27/2024 1:18 PM EST) GLUCOSE 85 65 - 99 mg/dL [facility] Comment: ?Fasting reference interval UREA NITROGEN (BUN) 17 7 - 25 mg/dL [facility] CREATININE (blood) 0.71 0.60 - 1.00 mg/dL [facility] EGFR 91 > OR = 60 mL/min/1. 73m2 [facility] BUN/CREATININE RATIO SEE NOTE: [facility] Comment: ?? Not Reported: BUN and Creatinine are within ?? reference range. ? SODIUM 143 135 - 146 mmol/L [facility] POTASSIUM 3.9 3.5 - 5.3 mmol/L [facility] CHLORIDE 105 98 - 110 mmol/L [facility] CARBON DIOXIDE 31 20 - 32 mmol/L [facility] CALCIUM 9.0 8.6 - 10.4 mg/dL [facility] PROTEIN, TOTAL 6.7 6.1 - 8.1 g/dL [facility] ALBUMIN 4.2 3.6 - 5.1 g/dL [facility] GLOBULIN 2.5 1.9 - 3.7 g/dL (calc) [facility] ALBUMIN/GLOBULI N RATIO 1.7 1.0 - 2.5 (calc) [facility] BILIRUBIN, TOTAL 0.3 0.2 - 1.2 mg/dL [facility] ALKALINE PHOSPHATASE 86 37 - 153 U/L [facility] AST 24 10 - 35 U/L [facility] ALT 20 6 - 29 U/L [facility] Blood Blood / Unknown 10/27/2024 1 :18 PM EST 10/27/2024 1:19 PM EST Minerva Omalley PA-C LAB - BLOOD DRAW Edited Resu lt - Final Performing Organization Address City/[facility]/ZIP Co de Phone Number [facility] [address] [address], [facility] [address] [address] * MAMMO DIGITAL SCREEN [place] W CAD 3D (03/12/2024 3:00 AM EDT) 03/12/2024 3:00 AM EDT Minerva Omalley PA-C IMG MAMMO Edited Resul t - Final Performing Organization Address City/[facility]/ZIP Co de Phone Number [facility] Corporate Office [address], [address] [place] [address], [place] [phone] * HISTORIC COLONOSCOPY (12/03/2022 3:00 AM EST) 12/03/2022 3:00 AM EST Minerva Lukin PA-C PROCEDURES Final Result * HEPATITIS C ANTIBODY (12/04/2018 3:35 PM EST) HEPATITIS C VIRUS SCREEN NEGATIVE NEGATIVE [facility] Blood specimen (specimen) Blood / Unknown 12/04/2018 3:35 PM EST 12/04/2018 3:42 PM EST Narrative [facility] - 12/04/2018 7:56 PM EST [employer], a member of [address] [address] [employer] - Priya Kilpatrick MD PT ID [id number] ORD# [id number] us Minerva Omalley PA-C LAB - BLOOD DRAW Final Resul t [address] [address], from Last 3 Months or Most Recently Relevant to Health Maintenance Insurance [facility] Member Subscriber Plan / Payer (Ef fective 2018-Present) Name:Jay Viktoriya Relation to Subscriber:Self Name:Viktoriya Thompson Payer ID:[id number] Group ID:Not on file Type:Indemnity Address: [place] [address] [place] [address] Care Teams Loin Puller Relationship Specialty Start Date End Date Minerva Omalley PA-C [address] [place] [address] PCP - General Internal Medicine 08/19/18
== END 2025-01-04 11:01 | disposition home or self-care (01) ==
LOC: HO.PMC 10:15
PROVIDERS: PCP Physician Assistant; Referring Provider Physician Assistant; Visit Provider Nurse Practitioner Family
DX: M51.369 Other intervertebral disc degeneration, lumbar region without mention of lumbar back pain or lower extremity pain (principal); M15.0 Primary generalized (osteo)arthritis; M79.7 Fibromyalgia; M25.561 Pain in right knee; M25.562 Pain in left knee; M54.50 Low back pain, unspecified; G89.29 Other chronic pain
CPT/HCPCS: 99204

== ENCOUNTER → 2025-01-04 11:14 | Outpatient (BNV) | payer OTHER, SELFPAY | PROVIDERS: PCP Physician Assistant; Referring Provider Physician Assistant; Visit Provider Radiology Diagnostic Radiology | DX: M51.369 Other intervertebral disc degeneration, lumbar region without mention of lumbar back pain or lower extremity pain (principal); M25.561 Pain in right knee | CPT/HCPCS: 72110; 73562 ==

== ENCOUNTER 2025-02-08 12:53 | Outpatient (AMB) | payer OTHER, SELFPAY ==
--- NOTE | 2025-02-08 12:54 | MHC.OFFVIS ---
Vital Signs 02/08/25 13:00 Height 4 ft 10 in Weight 130 lb BMI 27.2 BP 137/65 Blood Pressure Location Lt brachial Position Sitting Pulse 79 Pulse Source Pulse Oximeter Pulse Oximetry (%) 99 Oxygen Delivery Method Room Air Intake Visit Reasons: xray results Intake Note: Pain today 8/10 Toeing Stockings Required: Yes Toeing Stockings Language: Bulb Brander Services: Toeing Stockings Offered & Declined Toeing Stockings Name: -son Accompanied by: Family/Other Allergies No Known Allergies Allergy (Verified 02/08/25 13:00) HPI Comments Details: The patient is a 69-year-old female presenting with chronic back pain and review recent knee and lumbar spine xray results. Her back pain is severe, rated at 8/10, and primarily affects her during activities such as standing and bending. Lumbar imaging noted for multilevel disc space narrowing and endplate osteophyte formation, as well as facet hypertrophy. While she also experiences knee discomfort, this has been attributed to insignificant arthritis based on her x-rays. The patient also has osteoporosis but is unsure about the implications beyond avoiding certain procedures like steroidal injections. She has never received injections for pain and is cautious about undergoing diagnostic nerve blocks but is interested in potential longer term treatments like RFA if she has positive response. Pain is rates 8/10 and is moderate severe with exacerbating factors like standing, bending, leaning backwards, and general movements. PRIOR: The patient is a 69-year-old Sinhala speaking female presenting with back and bilateral knee pain. She reports experiencing long-standing back and knee pain that significantly impairs her mobility, ability to perform daily activities, and sleep quality. The pain has been a consistent problem for an extended period and is described as severe enough to disrupt nightly rest. Additionally, the patient has a documented diagnosis of fibromyalgia causing widespread pain and arthritis affecting multiple joints. Previously prescribed pain medications have been discontinued by her primary care provider and rheumatology per patient, with Gabapentin at nighttime remaining as part of her pain management regimen. The patient also manages osteoporotic and hypertensive conditions, necessitating a cautious approach to treatment plans, particularly concerning potential steroid use. Physical therapy or other non-pharmacological interventions have yet to be attempted. - Onset: Long-standing - Quality: Burning, tiring, tight, heavy, aching, sore, dull, exhausting, sharp - Location: Primarily the back, with knees, shoulders and neck complaints also mentioned - Radiation: No clear indications of systemic radiation, localized specific joint and fibromyalgia points - Exacerbating factors: Physical activity, walking, daily tasks, sleep, changing positions, cold weather - Relieving factors: Not explicitly discussed, partial relief with previous intake of Celebrex and lidocaine patches, heat - Functional impact: Impairs walking, sleeping, and daily activities; requires use of a cane for ambulation - Affect: The patient's mood and psychological well-being may be compromised due to the chronic pain affecting her daily living and sleep. - Analgesia: Current pain medications include Gabapentin taken at night. Lidocaine patches and Celebrex were previously partially effective. Awaiting complete PMH/PSH from PCP office for consideration of non-opioid medications. - Adverse Effects: None reported in connection with current pain medications. - Activities of Daily Living: Pain impedes walking, completing household tasks, and interrupts sleep. - Aberrant Drug Related Behaviors: None reported or observed during this visit. Oswestry Low Back Pain Disability Score=34 [facility] Medical History Dizziness Chronic fatigue Chronic low back pain HTN (hypertension) Osteoporosis Fibromyalgia Primary osteoarthritis involving multiple joints Lumbar degenerative disc disease Social History Alcohol intake: never Patient Tobacco Use Status: Never used Tobacco Review of Systems Const Details: - Musculoskeletal: Reports chronic back pain, denies significant knee pain. - Neurologic: Denies numbness or tingling; bladder or bowel dysfunction or saddle anesthesia. All systems reviewed & are unremarkable except as noted in HPI and below Physical Exam Vital Signs: Last Vital Signs Pulse 69 02/08/25 13:00 BP 183/80 H 02/08/25 13:00 Pulse Ox 98 02/08/25 13:00 Oxygen Delivery Method Room Air 02/08/25 13:00 BMI result Body Mass Index 33.0 General: Appears afebrile. Alert and oriented. Mood and affect appropriate. Follows and participates in conversation appropriately. Respiratory effort is unlabored. No cough. Able to transition from sit to stand unassisted. Ambulates with bilaterally normal heel strike and toe off. General: Yes no CVA tenderness Back/Spine/Pelvis Other: Lumbar extension reproduces moderate-severe pain. Flexion is intact but limited and reproduces mild pain. Positive facet loading bilaterally. Multiple widespread TTPs 16/16 bilaterally, including upper and lower extremities. Back: no CVA tenderness Cervical Spine: cervical ROM normal, cervical muscular tenderness, pain with cervical ROM, No Cervical spine scars present, No Cervical spine tenderness and No step off deformity Thoracic/Lumbar Spine: thoracic and lumbar spine normal to inspection, No Thoracic/lumbar spine scar(s), Lasegue's sign negative, straight leg raise negative bilaterally, pain with thoraco-lumbar ROM, paraspinal muscle tenderness, thoraco-lumbar ROM limited, No thoracic spinal tenderness and lumbar spinal tenderness (L3-S1) Pelvis: no buttock tenderness Sacroiliac joints: bilaterally tender to palpation Extrem General: Yes capillary refill normal, Yes no clubbing, cyanosis or edema and Yes no calf tenderness Right lower extremity: knee (limited ROM due to pain) Details: normal to inspection, tenderness Location: of the medial joint line and of the lateral joint line and crepitus; no swelling, no ecchymosis and no unusual warmth Left lower extremity: knee (limited ROM due to pain) Details: normal to inspection, tenderness Location: of the medial joint line and of the lateral joint line and crepitus; no swelling, no ecchymosis and no unusual warmth Results Reviewed Results Reviewed: XR Knee Shahzad 3V 01/04/25 Findings: No fractures or dislocations. No significant arthritic change or erosions. No joint effusion. No radiopaque foreign body. IMPRESSION: 1. No acute findings. 5 views lumbar spine 01/04/25 Comparison: None Findings: Normal vertebral body alignment. No acute fractures or dislocation. Multilevel disc space narrowing and endplate osteophyte formation, as well as facet hypertrophy. IMPRESSION: No acute findings. Assessment & Plan Assessment & Plan (1) Lumbar degenerative disc disease: Code(s): M51.369 - Other intervertebral disc degeneration, lumbar region without mention of lumbar back pain or lower extremity pain Category: Medical (2) Fibromyalgia: Code(s): M79.7 - Fibromyalgia Category: Medical (3) Chronic low back pain: Code(s): M54.50 - Low back pain, unspecified; G89.29 - Other chronic pain Category: Medical (4) Lumbosacral spondylosis: Code(s): M47.817 - Spondylosis without myelopathy or radiculopathy, lumbosacral region Category: Medical (5) Bilateral knee pain: Code(s): M25.561 - Pain in right knee; M25.562 - Pain in left knee Category: Medical Plan Lumbar spine and knee xray results were discussed with patient and family today. The current management plan focuses on addressing chronic lumbar spondylosis with disc degeneration and facet joint arthritis. Diagnostic nerve blocks will be used to determine pain origin related to facet arthritis. If pain relief is observed, radiofrequency ablation RFA or peripheral nerve stimulation with Sprint trial may follow for a more sustained pain relief up to a year. Steroidal injections are to be avoided due to osteoporosis. Schedule diagnostic bilateral L3-L4 DR L5 medial branch blocks with local and fluoroscopy. Expectations, risks and benefits were reviewed. Patient is aware she will be contacted to schedule this procedure. All questions and concerns have been answered and patient agreed with the plan. Follow up for xray/records review and sooner as needed. Patient was informed and verbally consented to the use of an ambient scribe for clinic note documentation during this visit. Coding Level of Care Code Est Pt Level 4 (15403) Complex EM visit Add On G2211 Diagnoses Lumbar degenerative disc disease M51.369 Fibromyalgia M79.7 Chronic low back pain M54.50; G89.29 Lumbosacral spondylosis M47.817 Bilateral knee pain M25.561; M25.562
[2025-02-08 13:00] VITALS: BP 137/65; PULSE 79; O2SAT 99; BMI 27.2
--- OUTSIDE RECORDS SUMMARY | 2025-02-08 14:15 | XMS_ITS | Clinical Summary ---
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 ([facility]HS-HCC) Inhale 2 Puffs into the lungs every 4 to 6 (four to six) hours as needed for shortness of breath 18 g 3 07/24/20 24 Active escitalopram oxalate (LEXAPRO) 5 mg tabletIndications :Anxiety and depression TOME 1 TABLETA POR VIA ORAL TODOS [place] AL ACOSTARSE 90 Tablet 1 10/16/19 25 Active gabapentin (NEURONTIN) 300 mg capsuleIndication s:Primary osteoarthritis involving multiple joints Take 1 Capsule by mouth nightly at bedtime 90 Capsule 3 10/27/19 25 Active amLODIPine (NORVASC) 2.5 [...] SHANKAR 180 Capsule 1 01/01/20 25 Active zolpidem (AMBIEN) 5 mg tabletIndications :Primary insomnia TAKE 1 TABLET BY MOUTH NIGHTLY AT BEDTIME NEEDED FOR SLEEP 30 Tablet 1 01/06/20 25 Active WIXELA INHUB 500-50 mcg/dose diskus inhalerIndication s:Mild persistent asthma without complication ([facility]-HCC) INHALE UN SOPLIDO VIA ORAL Y HACIA LOS PULMONES 2 VECES AL SHANKAR 60 Each 3 02/09/20 25 Active fluticasone propion-salmetero L (ADVAIR) 500-50 mcg/dose diskus inhalerIndication s:Mild persistent asthma without complication ([facility]HS-HCC) Inhale 1 Puff into the lungs 2 (two) times daily 60 Each 3 10/27/19 25 025 Discontinued Active Problems Problem Noted Date [...] September 20, 2017 15:40 EST Encounter info: [id number], BAKARI, OutPatient One Time, 09/20/2017 - * [...] There is no acute osseous abnormality. WSN: [id number] Signature Line Dictated By: Marcy Stokes MD [...] Description 12/16/2024 7:40 AM EDT Telemedicine Visit [facility] [address] [place] [address] Minerva Omalley PA-C Lumbar disc disease, x-ray 09/20/2017 (Primary Dx); Primary osteoarthritis involving multiple joints; Fibromyalgia from Last 3 Months Immunizations Immunization Administration [...] Screening 12/03/2032 Hepatitis C Screening Completed 12/04/2018 [id number] Discontinued 05/23/2022, 03/2021, 12/31/2020, Additional history exists Imm-Pneumococcal 65+ Completed 07/11/2022 Imm-Influenza Completed 08/18/2024, 02/2022, 06/30/2021, Additional history exists Alcohol and Drug Screen Completed 10/27/19, 03/05/2023, 11/14/2022, Additional history exists Imm-Zoster, Recombinant Discontinued 12/11/2024 Bone Density Screening Discontinued Procedures Procedure Name Priority Date/Time Associated Diagnosis Comments IMAGING SCANNED DOCUMENT 01/04/2025 3:00 AM EDT IMAGING SCANNED DOCUMENT 01/04/2025 3:00 AM EDT REFERRAL TO PAIN MANAGEMENT Routine 01/04/2025 3:00 AM EDT Lumbar disc disease, x-ray 09/20/2017 Primary osteoarthritis involving multiple joints Fibromyalgia REFERRAL TO RHEUMATOLOGY Routine 11/16/2024 3:00 AM EST Primary osteoarthritis involving multiple joints COMPREHENSIVE METABOLIC PANEL Routine 10/27/2024 1:18 PM EST Routine general medical examination at a health care facility Essential hypertension, benign Primary osteoarthritis involving multiple joints Malaise and fatigue LIPID PANEL Routine 10/27/2024 1:18 PM EST Routine general medical examination at a health care facility Essential hypertension, benign Primary osteoarthritis involving multiple joints Malaise and fatigue MAMMO DIGITAL SCREEN [place] W CAD 3D Routine 03/12/2024 3:00 AM EDT Screening mammogram for breast cancer HISTORIC COLONOSCOPY 12/03/2022 3:00 AM EST HEPATITIS C ANTIBODY Routine 12/04/2018 3:35 PM EST Routine general medical examination at a health care facility from Last 3 Months or Most Recently Relevant to Health Maintenance Results * IMAGING SCANNED DOCUMENT (01/04/2025 3:00 AM EDT) Only the most recent of2 resultswithin the time period is included. 01/04/2025 3:00 AM EDT us Minerva RAMOS-Asya SCAN IMAGING Final Result * REFERRAL TO PAIN MANAGEMENT (01/04/2025 3:00 AM EDT) 01/04/2025 3:00 AM EDT us Minerva Omalley PA-C REFERRAL Final Result * REFERRAL TO RHEUMATOLOGY (11/16/2024 3:00 AM EST) 11/16/2024 3:00 AM EST Minerva Omalley PA-C REFERRAL Final Result * (ABNORMAL) LIPID PANEL (10/27/2024 1:18 PM EST) CHOLESTEROL, TOTAL 243(H) <200 mg/dL [facility] HDL CHOLESTEROL 74 > OR = 50 mg/dL [facility] TRIGLYCERIDES 103 <150 mg/dL [facility] LDL-CHOLESTEROL 147(H) 99 mg/dL (calc) [facility] Comment: Reference range: <100 Desirable range <100 mg/dL for primary prevention; ?? <70 mg/dL for patients with CHD or diabetic patients with > or = 2 CHD risk factors. LDL-C is now calculated using the Noreen calculation, which is a validated novel method providing better accuracy than the Friedewald equation in the estimation of LDL-C. Gelacio SS et al. ASHWIN. 2013;310(19): 1592-2737 (http://education.Roving Planet/faq/WPO925) CHOL/HDLC RATIO 3.3 <5.0 (calc) [employer] [facility] NON-HDL CHOLESTEROL 169(H) <130 mg/dL (calc) [employer] Comment: For patients with diabetes plus 1 major ASCVD risk factor, treating to a non-HDL-C goal of <100 mg/dL (LDL-C of <70 mg/dL) is considered a therapeutic option. Blood Blood / Unknown 10/27/2024 1 :18 PM EST 10/27/2024 1:19 PM EST us Minerva Omalley PA-C LAB - BLOOD DRAW Final Resul t [facility] [address] [address], [facility] [address] [place] [address] * COMPREHENSIVE METABOLIC PANEL (10/27/2024 1:18 PM EST) GLUCOSE 85 65 - 99 mg/dL [facility] Comment: ?Fasting reference interval UREA NITROGEN (BUN) 17 7 - 25 mg/dL [facility] CREATININE (blood) 0.71 0.60 - 1.00 mg/dL [facility] EGFR 91 > OR = 60 mL/min/1. 73m2 [facility] BUN/CREATININE RATIO SEE NOTE: [facility] Comment: ?? Not Reported: BUN and Creatinine are within ?? reference range. ? SODIUM 143 135 - 146 mmol/L [facility] POTASSIUM 3.9 3.5 - 5.3 mmol/L [facility] CHLORIDE 105 98 - 110 mmol/L [facility] CARBON DIOXIDE 31 20 - 32 mmol/L [facility] CALCIUM 9.0 8.6 - 10.4 mg/dL [facility] PROTEIN, TOTAL 6.7 6.1 - 8.1 g/dL [facility] ALBUMIN 4.2 3.6 - 5.1 g/dL [facility] GLOBULIN 2.5 1.9 - 3.7 g/dL (calc) [facility] ALBUMIN/GLOBULI N RATIO 1.7 1.0 - 2.5 (calc) [facility] BILIRUBIN, TOTAL 0.3 0.2 - 1.2 mg/dL [facility] ALKALINE PHOSPHATASE 86 37 - 153 U/L [facility] AST 24 10 - 35 U/L [facility] ALT 20 6 - 29 U/L [facility] Blood Blood / Unknown 10/27/2024 1 :18 PM EST 10/27/2024 1:19 PM EST us Minerva Omalley PA-C LAB - BLOOD DRAW Edited Resu lt - Final [facility] [address] [address], [facility] [address] [address] * MAMMO DIGITAL SCREEN [place] W CAD 3D (03/12/2024 3:00 AM EDT) 03/12/2024 3:00 AM EDT Minerva Omalley PA-C IMG MAMMO Edited Resul t - Final [facility] Corporate Office [address], [address] [place] [address], * HISTORIC COLONOSCOPY (12/03/2022 3:00 AM EST) 12/03/2022 3:00 AM EST Minerva Omalley PA-C PROCEDURES Final Result * HEPATITIS C ANTIBODY (12/04/2018 3:35 PM EST) HEPATITIS C VIRUS SCREEN NEGATIVE NEGATIVE [facility] Blood specimen (specimen) Blood / Unknown 12/04/2018 3:35 PM EST 12/04/2018 3:42 PM EST Narrative [facility] - 12/04/2018 7:56 PM EST [employer] [address] Scrap Shear Operator - Priya Kilpatrick MD PT ID [id number] ORD# [id number] Minerva Omalley PA-C LAB - BLOOD DRAW Final Resul t Performing Organization Address City/[facility]/[place] [address], from Last 3 Months or Most Recently Relevant to Health Maintenance Insurance [facility] Member Subscriber Plan / Payer (Ef fective 2018-Present) Name:Viktoriya Thompson Relation to Subscriber:Self Name:Viktoriya Thompson Payer ID:[id number] Group ID:Not on file Type:Indemnity Address: [place] [address] [address] Care Teams University Counselor Relationship Specialty Start Date End Date Minerva Omalley PA-C [address] [place] [address] PCP - General Internal Medicine 08/19/18
--- OUTSIDE RECORDS SUMMARY | 2025-02-08 14:15 | XMS_ITS | Clinical Summary ---
Author Organization [address] [place] [address] [place] [phone] Phone Care Team Providers Care Store Merchandiser Name Role Phone Unavailable Primary Care Provider Unavailabl e Social History Tobacco Use Types Packs/Day Years Used Date Smoking Tobacco: Never Assessed Comments Unknown Sex and Gender Information Value Date Recorded Sex Assigned at Not on file Legal Sex Female 9:03 AM EST Gender Identity Not on file Sexual Orientation Not on file Plan of Treatment Upcoming Encounters Date Type Department Care Team ([facility] Contact Info) Description 02/09/2025 2:00 PM EDT Evaluation [address] [address] Kavya Birch, GEETHA Health Maintenance Due Date Last Done Comments Breast Cancer Screening 1955 DTaP,Tdap,and Td Vaccines (1 - Tdap) 1972 Pneumococcal Vaccine: 50+ Ye ars (1 of 1 - PCV) 2003 Zoster Vaccines (1 of 2) 2003 COVID-19 Vaccine ( - 2023-2 5 season) 2024 Colorectal Cancer Screening: Colonoscopy 01/07/2025 Depression Screening 01/07/2025 Falls Risk Assessment 01/07/2025 Hepatitis C Screening 01/07/2025 Medicare Annual Wellness Visit 01/07/2025 Osteoporosis Screening (Bone Density Screening) 01/07/2025 Social Influencers of Health Screening 01/07/2025 Influenza Vaccine (Season Ended) 2025 RSV Immunization Adult Patie nts (1 - 1-dose 75+ series) 2028 HIB Vaccines Aged Out No longer eligi ble based on patient's age to complete this topic HPV Vaccines Aged Out No longer eligi ble based on patient's age to complete this topic Hepatitis A Vaccines Aged Out No long er eligible based on patient's age to complete this topic Hepatitis B Vaccines Aged Out No long er eligible based on patient's age to complete this topic IPV Vaccines Aged Out No longer eligi ble based on patient's age to complete this topic MMR Vaccines Aged Out No longer eligi ble based on patient's age to complete this topic Meningococcal ACWY Vaccine Aged Out N o longer eligible based on patient's age to complete this topic Meningococcal B Vaccine Aged Out No l onger eligible based on patient's age to complete this topic RSV Immunization Patients Un inez 20 months Aged Out No longer eligible b ased on patient's age to complete this topic Varicella Vaccines Aged Out No longer eligible based on patient's age to complete this topic Insurance [employer] MEDICARE Member Subscriber Plan / Payer (Ef fective 2018-Present) Name:Viktoriya Thompson Relation to Subscriber:Self Name:Viktoriya Thompson Payer ID:[id number] Group ID:[id number] Type:Not on file Address: [facility] [address] [address]
== END 2025-02-08 13:34 | disposition home or self-care (01) ==
LOC: HO.PMC 12:54
PROVIDERS: PCP Physician Assistant; Visit Provider Nurse Practitioner Family
DX: M51.369 Other intervertebral disc degeneration, lumbar region without mention of lumbar back pain or lower extremity pain (principal); M79.7 Fibromyalgia; M54.50 Low back pain, unspecified; G89.29 Other chronic pain; M47.817 Spondylosis without myelopathy or radiculopathy, lumbosacral region; M25.561 Pain in right knee; M25.562 Pain in left knee
CPT/HCPCS: 99214; G2211

== ENCOUNTER → 2025-02-08 12:53 | Outpatient (BNVA) | payer OTHER, SELFPAY | PROVIDERS: PCP Physician Assistant; Visit Provider Nurse Practitioner Family | DX: M47.817 Spondylosis without myelopathy or radiculopathy, lumbosacral region (principal); M79.7 Fibromyalgia; M51.360 Other intervertebral disc degeneration, lumbar region with discogenic back pain only; M25.561 Pain in right knee; M25.562 Pain in left knee; G89.29 Other chronic pain | CPT/HCPCS: 99212 ==